=== PATIENT | female | born 1955 | race Caucasian/White ===

== ENCOUNTER 2021-02-10 12:51 | Outpatient (CLI) | payer BC | END 2021-02-10 12:52 | disposition home or self-care (01) | LOC: BICMRI 12:51 | PROVIDERS: ATTEND Surgery | DX: C50.912 Malignant neoplasm of unspecified site of left female breast (principal) | CPT/HCPCS: 82565; A9577; C8908 ==

== ENCOUNTER 2021-02-21 14:12 | Outpatient (CLI) | payer BC | END 2021-02-21 14:13 | disposition home or self-care (01) | LOC: ULT 14:12 | PROVIDERS: ATTEND Internal Medicine Hematology & Oncology | DX: Z51.11 Encounter for antineoplastic chemotherapy (principal); C50.512 Malignant neoplasm of lower-outer quadrant of left female breast; Z79.899 Other long term (current) drug therapy | CPT/HCPCS: 93306 ==

== ENCOUNTER 2022-04-05 11:17 | Outpatient (CLI) | payer MEDICARE, BC | END 2022-04-05 11:18 | disposition home or self-care (01) | LOC: BICRAD 11:17 | PROVIDERS: ATTEND Internal Medicine Hematology & Oncology | DX: M54.50 Low back pain, unspecified (principal); M81.0 Age-related osteoporosis without current pathological fracture; C50.512 Malignant neoplasm of lower-outer quadrant of left female breast; M47.816 Spondylosis without myelopathy or radiculopathy, lumbar region | CPT/HCPCS: 72100 ==